=== PATIENT | male | born 1990 | race Caucasian/White ===

== ENCOUNTER → 2019-10-03 12:30 | Outpatient (CLI) | payer OTHER, MEDICAID, SELFPAY ==
--- NOTE | 2019-10-03 | DI.MRI.S_ITS ---
PROCEDURE: MR HIP RT WO CON INDICATIONS: Chronic back/hip pain TECHNIQUE: Noncontrast coronal T1 spin echo and STIR through the bony pelvis. Coronal and axial T2 fast spin echo with fat saturation, sagittal T1 spin echo, and oblique axial T2 fast spin echo with fat saturation through the hip. COMPARISON: None. FINDINGS: Image quality: Excellent. Bones and joints: Bone marrow of the pelvic ring and proximal femurs show normal signal throughout. No intraosseous lesions or fractures. No avascular necrosis of the femoral heads. The visualized lower lumbar spine appears normally aligned. Tendons and ligaments: There is tendinosis and low-grade partial-thickness tear involving distal right gluteus medius and minimus tendons at their insertion on greater trochanter, without associated muscle atrophy. The nearby proximal iliotibial band also appears intact. The iliopsoas tendon appears intact, without adjacent bursal fluid collections or evidence for impingement syndrome. The origin of the hamstring tendon is intact at the ischial tuberosity, as well as the associated sacrotuberous ligament. The straight and reflected heads of the rectus femoris muscle origin appear intact, as well as the conjoint tendon. The ligamentum teres appears intact where visualized. Labrum and cartilage: There is superior anterior labral signal abnormality in the absence of intra-articular contrast, concerning for superior anterior labral tear. Cartilage surface of the femoral head appears of normal thickness. The alpha angle of the femur is within normal limits at less than 55 degrees. Soft tissues: Visualized muscles demonstrate normal bulk and internal signal. Quadratus femoris muscle demonstrates no internal edema to suggest ischiofemoral impingement. The proximal sciatic neurovascular bundle appears normal adjacent to the hamstring tendons. No free pelvic fluid. Bladder wall thickness is normal. Genitourinary structures and bowel loops appear normal where visualized. IMPRESSION: 1. No marrow edema. No fracture or dislocation. No evidence of avascular necrosis of femoral head. 2. Finding is concerning for superior anterior right hip labral tear. 3. Tendinosis and low-grade partial-thickness tear involving distal right gluteus medius and minimus tendons at their insertion on greater trochanter. Dictated by: Tahir Gross M.D. on 10/03/2019 at 14:48 Approved by: Tahir Gross M.D. on 10/03/2019 at 14:53
--- NOTE | 2019-10-03 13:24 | DI.MRI.S_ITS ---
PROCEDURE: MR LUMBAR SPINE WO CON INDICATIONS: Chronic back/hip pain TECHNIQUE: Noncontrast sagittal T1 spin echo and T2 fast echo, sagittal STIR, axial T1 and T2 fast spin echo through the lumbar spine. In cases with scoliosis, additional coronal T2 fast spin echo may be performed. COMPARISON: [facility], , L-SPINE MINIMUM 4 VIEWS, 10/04/2017, 11:36. FINDINGS: Image quality: Excellent. Alignment and Curvature: Straightening of the normal lordotic curvature. Grade 1 retrolisthesis of L5 on S1. Bone Marrow: No fracture. Chronic appearing scattered Schmorl's nodes. Diffuse shortened appearance of the pedicles, in keeping with congenital lumbar spinal stenosis Spinal Cord: Conus medullaris terminates at the L2 level. Visualized cord demonstrates normal signal and size. Paraspinous Soft Tissues: No paravertebral masses. L1-L2: Normal appearance. L2-L3: Normal appearance. L3-L4: No central canal stenosis. Lateral recesses appear patent. Mild bilateral foraminal narrowing. L4-L5: No central canal stenosis. lateral recesses appear grossly patent. Moderate bilateral foraminal stenosis with slight nerve root compression. L5-S1: Large right-sided paracentral disc protrusion with slight inferior migration the level of the S1 endplate. Near complete effacement of the right lateral recess. Left lateral recess appears patent. No high-grade central canal narrowing. Moderate bilateral foraminal stenosis with slight nerve root compression on both sides. IMPRESSION: Large right paracentral disc protrusion with associated effacement of right lateral recess suspicious for descending right S1 nerve root compression. Recommend correlation to clinical exam findings. Diffuse shortening of lumbar pedicles suggesting congenital spinal stenosis Bilateral moderate foraminal stenoses at L4-L5 and L5-S1 Mild bilateral L3-L4 foraminal stenoses Dictated by: Curtis Marvin M.D. on 10/03/2019 at 14:31 Approved by: Curtis Marvin M.D. on 10/03/2019 at 14:39
== END ==
PROVIDERS: Family Provider Family Medicine; PCP Family Medicine; Referring Provider Family Medicine; Visit Provider Family Medicine
DX: M54.9 Dorsalgia, unspecified (principal); M25.551 Pain in right hip; S76.011A Strain of muscle, fascia and tendon of right hip, initial encounter; M48.061 Spinal stenosis, lumbar region without neurogenic claudication; M48.07 Spinal stenosis, lumbosacral region; M51.26 Other intervertebral disc displacement, lumbar region; G89.29 Other chronic pain
CPT/HCPCS: 72148; 73721

== ENCOUNTER → 2020-08-26 11:41 | Outpatient (CLI) | payer OTHER, MEDICAID, SELFPAY ==
[2020-08-26 13:17] LABS: COVID19 -Nasal RAPID Negative (Negative)
== END ==
PROVIDERS: Family Provider Family Medicine; PCP Family Medicine; Visit Provider Nurse Practitioner
DX: Z20.828 Contact with and (suspected) exposure to other viral communicable diseases (principal); R05 Cough; R09.81 Nasal congestion
CPT/HCPCS: 87635

== ENCOUNTER → 2022-01-12 13:20 | Outpatient (CLI) | payer OTHER, MEDICAID, SELFPAY ==
[2022-01-12 19:50] LABS: Alanine Aminotransferase 39 IU/L (<50); Albumin 4.8 g/dL (3.5-5.0); Albumin Globulin Ratio 1.6 (1.0-2.8); Alkaline Phosphatase 88 U/L (38-126); Aspartate Aminotransferase 98 IU/L (17-59); BUN Creatinine Ratio 14.6 (6-22); Bilirubin Total 0.8 mg/dL (0.2-1.3); Blood Urea Nitrogen 12 mg/dL (9-20); Carbon Dioxide 26 mmol/L (22-32); Chloride 102 mmol/L (98-107); Estimated Glomerular Filt Rate > 60 mL/min (>60); Glucose 103 mg/dL (70-100); HEMOLYSIS 20 (0-50); Potassium 4.2 mmol/L (3.4-5.1); Sodium 139 mmol/L (137-145); Total Protein 7.8 g/dL (6.3-8.2)
[2022-01-12 20:09] LABS: Add Manual Diff / Slide Review NO; Basophils Absolute Auto 0 /uL (0-100); Basophils Percent Auto 0.5 % (0-2); Eosinophils Absolute Auto 300 /uL (0-450); Eosinophils Percent Auto 4.4 % (2-4); Hematocrit 41.5 % (41-53); Hemoglobin 14.7 g/dL (13.5-17.5); Lymphocytes Absolute Auto 2400 /uL (1100-4500); Lymphocytes Percent Auto 36.2 % (25-40); Mean Corpuscular HGB Conc 35.5 % (30-36); Mean Corpuscular Hemoglobin 32.1 PG (26-34); Mean Corpuscular Volume 90.3 fL (80-100); Monocytes Absolute Auto 600 /uL (0-900); Monocytes Percent Auto 9.5 % (3-14); Neutrophils Absolute Auto 3300 /uL (1500-7000); Neutrophils Percent Auto 49.4 % (50-75); Platelet Count 266 X10^3/uL (150-400); Red Cell Distribution Width 13.2 % (11.6-14.8); White Blood Cell Count 6.6 X10^3/uL (4.5-11.0)
[2022-01-12 20:17] LABS: Vitamin D 25 Hydroxy (D3) 44.5 ng/mL (30.0-100.0)
[2022-01-12 20:32] LABS: TSH w/ Reflex to FT4 1.45 uIU/mL (0.47-4.68)
== END ==
PROVIDERS: Family Provider Family Medicine; PCP Physician Assistant; Visit Provider Physician Assistant
DX: R63.5 Abnormal weight gain (principal); R53.83 Other fatigue
CPT/HCPCS: 80053; 82306; 84443; 85025

== ENCOUNTER → 2022-11-01 14:32 | Outpatient (CLI) | payer OTHER, MEDICAID, SELFPAY ==
[2022-11-01 19:08] LABS: Add Manual Diff / Slide Review NO; Basophils Absolute Auto 100 /uL (0-100); Eosinophils Absolute Auto 200 /uL (0-450); Eosinophils Percent Auto 3.9 % (2-4); Hematocrit 44.2 % (41-53); Hemoglobin 15.6 g/dL (13.5-17.5); Lymphocytes Absolute Auto 2200 /uL (1100-4500); Mean Corpuscular HGB Conc 35.3 % (30-36); Mean Corpuscular Volume 90.7 fL (80-100); Monocytes Absolute Auto 500 /uL (0-900); Monocytes Percent Auto 9.4 % (3-14); Neutrophils Absolute Auto 2800 /uL (1500-7000); Neutrophils Percent Auto 47.7 % (50-75); Platelet Count 284 X10^3/uL (150-400); Red Blood Cell Count 4.87 X10^6/uL (4.5-5.9); Red Cell Distribution Width 12.7 % (11.6-14.8); White Blood Cell Count 5.8 X10^3/uL (4.5-11.0)
[2022-11-01 19:19] LABS: Alanine Aminotransferase 33 IU/L (<50); Albumin 4.9 g/dL (3.5-5.0); Albumin Globulin Ratio 1.6 (1.0-2.8); Alkaline Phosphatase 81 U/L (38-126); Aspartate Aminotransferase 30 IU/L (17-59); BUN Creatinine Ratio 19.8 (6-22); Bilirubin Total 0.6 mg/dL (0.2-1.3); Blood Urea Nitrogen 16 mg/dL (9-20); Calcium 9.6 mg/dL (8.4-10.2); Carbon Dioxide 32 mmol/L (22-32); Chloride 97 mmol/L (98-107); Estimated Glomerular Filt Rate > 60 mL/min (>60); Globulin 3.1 g/dL (1.7-4.1); Glucose 83 mg/dL (70-100); HEMOLYSIS 16 (0-50); Potassium 4.3 mmol/L (3.4-5.1); Sodium 139 mmol/L (137-145)
[2022-11-01 20:46] LABS: Urine N gonorrhoeae NOT DETECTED
[2022-11-01 21:01] LABS: Urine Chlamydia NOT DETECTED
[2022-11-03 18:02] LABS: HIV 1 & 2 Ab/Ag 4th Gen Combo NEGATIVE (NEGATIVE)
[2022-11-05 05:19] LABS: Hepatitis A Ab IgM Negative (Negative); Hepatitis A Ab Total Positive (Negative); Hepatitis B Core AB w/Reflex Negative (Negative)
== END ==
PROVIDERS: Family Provider Family Medicine; PCP Physician Assistant; Visit Provider Physician Assistant
DX: R74.8 Abnormal levels of other serum enzymes (principal); K90.0 Celiac disease; Z11.3 Encounter for screening for infections with a predominantly sexual mode of transmission
CPT/HCPCS: 80053; 85025; 86704; 86708; 87389; 87491; 87522; 87591

== ENCOUNTER → 2024-05-13 13:05 | Outpatient (CLI) | payer OTHER, SELFPAY ==
[2024-05-13 19:31] LABS: Add Manual Diff / Slide Review NO; Basophils Absolute Auto 100 /uL (0-100); Basophils Percent Auto 1.2 % (0-2); Eosinophils Absolute Auto 300 /uL (0-450); Eosinophils Percent Auto 4.1 % (2-4); Hematocrit 44.2 % (41-53); Hemoglobin 15.6 g/dL (13.5-17.5); Lymphocytes Absolute Auto 2800 /uL (1100-4500); Lymphocytes Percent Auto 38.6 % (25-40); Mean Corpuscular HGB Conc 35.4 % (30-36); Mean Corpuscular Hemoglobin 32.4 PG (26-34); Mean Corpuscular Volume 91.7 fL (80-100); Monocytes Absolute Auto 600 /uL (0-900); Monocytes Percent Auto 8.6 % (3-14); Neutrophils Absolute Auto 3500 /uL (1500-7000); Neutrophils Percent Auto 47.5 % (50-75); Platelet Count 313 X10^3/uL (150-400); Red Blood Cell Count 4.82 X10^6/uL (4.5-5.9); Red Cell Distribution Width 12.7 % (11.6-14.8); White Blood Cell Count 7.3 X10^3/uL (4.5-11.0)
[2024-05-13 19:41] LABS: Alanine Aminotransferase 40 IU/L (<50); Albumin 4.7 g/dL (3.5-5.0); Albumin Globulin Ratio 1.5 (1.0-2.8); Alkaline Phosphatase 80 U/L (38-126); Amylase 70 U/L (30-110); Aspartate Aminotransferase 33 IU/L (17-59); BUN Creatinine Ratio 12.4 (6-22); Bilirubin Total 0.8 mg/dL (0.2-1.3); Blood Urea Nitrogen 12 mg/dL (9-20); Calcium 10.3 mg/dL (8.4-10.2); Carbon Dioxide 32 mmol/L (22-32); Chloride 98 mmol/L (98-107); Estimated Glomerular Filt Rate > 60 mL/min (>60); Globulin 3.2 g/dL (1.7-4.1); Glucose 85 mg/dL (70-100); HEMOLYSIS 24 (0-50); Lipase 56 U/L (23-300); Potassium 4.2 mmol/L (3.4-5.1); Sodium 138 mmol/L (137-145); Total Protein 7.9 g/dL (6.3-8.2)
== END ==
PROVIDERS: Family Provider Family Medicine; PCP Physician Assistant; Visit Provider Physician Assistant
DX: R14.3 Flatulence (principal); K90.49 Malabsorption due to intolerance, not elsewhere classified; R10.814 Left lower quadrant abdominal tenderness
CPT/HCPCS: 80053; 82150; 83690; 85025

== ENCOUNTER → 2024-11-14 11:29 | Outpatient (CLI) | payer OTHER, SELFPAY ==
[2024-11-18 09:36] LABS: QuantiFERON Mitogen Value >10.00 IU/mL (.); QuantiFERON Nil Value 0.06 IU/mL (.); QuantiFERON TB Gold Plus Negative (Negative); QuantiFERON TB1 Ag Value 0.07 IU/mL (.); QuantiFERON TB2 Ag Value 0.07 IU/mL (.)
== END ==
PROVIDERS: Family Provider Family Medicine; PCP Physician Assistant; Visit Provider Physician Assistant
DX: Z11.1 Encounter for screening for respiratory tuberculosis (principal); Z78.9 Other specified health status
CPT/HCPCS: 86317; 86480